=== PATIENT | male | born 1985 | race African-American/Black ===

== ENCOUNTER 2018-11-26 04:08 | Inpatient (IN) | payer OTHER ==
[~2018-11-26] VITALS: Ht 185.4 cm; Wt 71.3 kg
--- NOTE | 2018-11-26 04:18 | NUR ---
Dr. Huber at bedside for MSE.
[2018-11-26] MEDS ORDERED: VANCOMYCIN IV 1,000 MG in IV DEXTROSE 5% 250 ML IV ONE (04:30)
[2018-11-26] MEDS ORDERED: CEFTRIAXONE 1 G in IV DEXTROSE 5% 50 ML IV ONE (04:30)
[2018-11-26] MEDS ORDERED: ONDANSETRON 4 MG/2 ML VIAL IV ONE (04:30)
[2018-11-26] MEDS ORDERED: IV NORMAL SALINE 1000 ML BAG IV ONE (04:30)
[2018-11-26] MEDS ORDERED: MORPHINE SULFATE 2 MG/1 ML DISP.SYRIN IV ONE (04:30)
[2018-11-26] MEDS ORDERED: CEFTRIAXONE 1 G VIAL ONE (04:40)
[2018-11-26] MEDS ORDERED: VANCOMYCIN 1000 MG VIAL ONE (04:40)
[2018-11-26] MEDS ORDERED: ONDANSETRON 4 MG/2 ML VIAL ONE (04:41)
[2018-11-26] MEDS ORDERED: MORPHINE SULFATE 4 MG/1 ML DISP.SYRIN ONE (04:41)
[2018-11-26 04:44] LABS: POTASSIUM 3.7 mmol/L (3.5-5.1)
[2018-11-26 04:46] LABS: BASOPHILS # (AUTO) 0.1 K/uL (0.0-8.0); BASOPHILS % (AUTO) 0.3 % (0.0-2.0); EOSINOPHILS # (AUTO) 0.1 K/uL (0.0-0.7); EOSINOPHILS % (AUTO) 0.3 % (0.0-7.0); HEMOGLOBIN 15.2 g/dL (12.5-16.3); LYMPHOCYTES # (AUTO) 0.8 K/uL (20.0-40.0); MEAN CORPUSCULAR HEMOGLOBIN 27.2 uug (23.8-33.4); MEAN CORPUSCULAR HGB CONC 34 g/dL (32.5-36.3); MEAN CORPUSCULAR VOLUME 79.2 fL (73.0-96.2); MONOCYTES # (AUTO) 1.2 K/uL (2.0-10.0); MONOCYTES % (AUTO) 5.8 % (0.0-11.0); NEUTROPHILS % (AUTO) 89.6 % (38.5-71.5); PLATELET COUNT (AUTO) 325 K/uL (152-348); RED BLOOD CELL COUNT(AUTO) 5.56 MIL/uL (4.06-5.63); WHITE BLOOD COUNT (AUTO) 20.1 K/uL (3.6-10.2)
[2018-11-26 04:58] LABS: BILIRUBIN,DIRECT 0.1 mg/dL (0.0-0.2); BILIRUBIN,TOTAL 0.4 mg/dL (0.2-1.0); TOTAL PROTEIN, SERUM 7.7 g/dL (6.4-8.2)
--- NOTE | 2018-11-26 05:12 | NUR ---
Ultrasound at bedside.
[2018-11-26] MEDS ORDERED: HYDROMORPHONE 1 MG/1 ML DISP.SYRIN ONE (05:23)
[2018-11-26] MEDS ORDERED: HYDROMORPHONE 1 MG/1 ML DISP.SYRIN IV ONE (05:30)
[2018-11-26] MEDS ORDERED: SWABABLE VALVE TRANSFER SET EA MC ONE (05:42)
[2018-11-26] MEDS ORDERED: IV NORMAL SALINE 250 ML IV ONE (05:43)
[2018-11-26] MEDS ORDERED: IOHEXOL 350 100 ML INFUS..BTL ONE (05:43)
--- NOTE | 2018-11-26 05:46 | NUR ---
Patient out of ER for CT
--- NOTE | 2018-11-26 06:22 | NUR ---
Pt back to ER for CT.
--- NOTE | 2018-11-26 06:46 | NUR ---
Report given to Ruiz rojas.
--- NOTE | 2018-11-26 08:39 | NUR ---
REPORT WAS GIVEN TO RN M/S. PT WAS TRANSFERED TO ROOM #303.
[2018-11-26] MEDS ORDERED: ONDANSETRON 4 MG/2 ML VIAL IV PRN (08:45)
[2018-11-26] MEDS ORDERED: Z GUARD REMEDY PASTE 57 GM TUBE TOP PRN (08:45)
[2018-11-26] MEDS ORDERED: ACETAMINOPHEN 325 MG TABLET PO PRN (08:45)
[2018-11-26] MEDS ORDERED: MAGNESIUM HYDROXIDE 30 ML LIQUID UDC PO PRN (08:45)
--- NOTE | 2018-11-26 10:00 | NUR ---
PHARMACY CLINICAL NOTES ( VANCOMYCIN DOSING ) S: To start vanco for this 33 yo male patient for RUE cellulitis O: BUN/SCR 13/1.0 TEMP 98.4, WBC 20.1 ht 185 cm wt 68 kg A/P: Patient received vanco 1gm IVPB x1 in ED today at 0500. Will start vanco 1gm IVPB q11h for predicted vanco trough level of 15 mcg/ml at steady state. 2nd dose today at 1600. Will check vanco trough level before 4th dose today (not yet ordered) Will continue following renal FXN and adjust the dose as needed. Will follow up
[2018-11-26 10:26] VITALS: BP 126/75
--- NOTE | 2018-11-26 10:30 | NUR ---
PATIENT ARRIVED TO UNIT FROM ER. RECEIVED REPORT FROM JACKLYN CONNER. PATIENT V/S STABLE. RIGHT ARM TENDER, RED AND SWELLING. PATIENT COMPLAINS OF PAIN TO ARM. PATIENT AOX3 BUT LETHARGIC AT TIMES. PATIENT UNABLE TO PROVIDE FULL HISTORY DUE TO GARGLED SPEECH AND LETHARGY. WILL CONTINUE TO MONITOR PATIENT.
[2018-11-26 11:30] VITALS: BP 125/89
[2018-11-26] MEDS: ENOXAPARIN SODIUM 40 MG/0.4 ML DISP.SYRIN SQ SCH (12:59)
[2018-11-26] MEDS: MORPHINE SULFATE 2 MG/1 ML DISP.SYRIN IV PRN ×3 (13:08→22:35)
[2018-11-26] MEDS: IV NS 1000 ML 1,000 ML IV PRN (14:10)
[2018-11-26] MEDS: HYDROCODONE/APAP 5-325MG TABLET PO PRN (15:23)
[2018-11-26 15:44] LABS: *BILIRUBIN,URIN NEGATIVE (NEGATIVE); *BLOOD, URINE NEGATIVE (NEGATIVE); *CLARITY,URINE CLEAR (CLEAR); *COLOR,URINE YELLOW (YELLOW); *KETONES,URINE NEGATIVE (NEGATIVE); NITRITE, URINE NEGATIVE (NEGATIVE); UGLUCOSE NEGATIVE (NEGATIVE)
[2018-11-26 16:00] VITALS: BP 123/78
[2018-11-26 16:03] LABS: LEUKOCYTE ESTERASE ,URINE TRACE (NEGATIVE)
[2018-11-26 16:04] LABS: MUCUS,URINE FEW /LPF (0-FEW); SQUAMOUS EPITHELIAL CELL,UR FEW /HPF (NONE SEEN)
[2018-11-26 16:06] LABS: *AMPHETAMINE, URINE POSITIVE (NEGATIVE); *BARBITURATE, URINE NEGATIVE (NEGATIVE); *CANNABINOID, URINE POSITIVE (NEGATIVE); *COCCAINE, URINE NEGATIVE (NEGATIVE); *OPIATE, URINE POSITIVE (NEGATIVE); *PHENCYCLIDINE SCREEN,URINE NEGATIVE (NEGATIVE)
[2018-11-26] MEDS: VANCOMYCIN IV 1 G in PREMIXED 0 EACH IV SCH (16:46)
--- NOTE | 2018-11-26 19:30 | NUR ---
SHIFT REPORT GIVEN TO NIGHT RN. PATIENT AOX4, LESS LETHARGIC THEN WHEN CAME IN. LEFT ARM IV INTACT WITH NS AT 75CC/HR ORDERED. PATIENT COMPLAINS OF RT. ARM PAIN AND PAIN MEDICATIONS ARE GIVEN ORDERED. PATIENT COMPLIANT WITH ALL CARE AND MEDICATION ADMINISTRATION. VITAL SIGNS STABLE THROUGHOUT SHIFT. SAFETY AND FALL PREVENTION IN PLACE. BED LOW AND LOCKED. CALL LIGHT IN REACH.
--- NOTE | 2018-11-26 20:00 | NUR ---
RECEIVED REPORT FROM AM RN. PATIENT ASLEEP IN BED, RESTING COMFORTABLY. UNABLE TO AROUSE FROM SLEEP BUT VS ARE WNL AND PATIENT IS STABLE. FALL AND SAFETY PRECAUTIONS IN PLACE. BED IN LOWEST POSITION WITH BRAKE APPLIED. 2 SIDE RAILS ARE UP AND IN LOCKED POSITION. CALL LIGHT IS WITHIN REACH. BED ALARM APPLIED FOR PATIENT SAFETY DUE TO MEDICATION REGIMEN TO RELIEVE PAIN. WILL CONTINUE TO MONITOR.
[2018-11-26 20:02] VITALS: BP 125/83
[2018-11-27] MEDS: HYDROCODONE/APAP 5-325MG TABLET PO PRN ×2 (00:27→22:04)
[2018-11-27] MEDS: VANCOMYCIN IV 1 G in PREMIXED 0 EACH IV SCH (02:32)
[2018-11-27] MEDS: IV NS 1000 ML 1,000 ML IV PRN (04:27)
[2018-11-27] MEDS ORDERED: CEFTRIAXONE 1 G in IV DEXTROSE 5% 50 ML IV SCH (05:00)
[2018-11-27 05:11] VITALS: BP 113/74
[2018-11-27] MEDS: MORPHINE SULFATE 2 MG/1 ML DISP.SYRIN IV PRN ×2 (05:29→15:49)
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
[2018-11-27 06:19] LABS: BASOPHILS # (AUTO) 0.1 K/uL (0.0-8.0); BASOPHILS % (AUTO) 0.5 % (0.0-2.0); EOSINOPHILS # (AUTO) 0.5 K/uL (0.0-0.7); EOSINOPHILS % (AUTO) 2.3 % (0.0-7.0); HEMATOCRIT 41.7 % (36.7-47.1); HEMOGLOBIN 14.5 g/dL (12.5-16.3); LYMPHOCYTES # (AUTO) 1.6 K/uL (20.0-40.0); LYMPHOCYTES % (AUTO) 8.4 % (20.5-51.5); MEAN CORPUSCULAR HEMOGLOBIN 27.1 uug (23.8-33.4); MEAN CORPUSCULAR HGB CONC 35 g/dL (32.5-36.3); MEAN CORPUSCULAR VOLUME 78.1 fL (73.0-96.2); MONOCYTES # (AUTO) 1.5 K/uL (2.0-10.0); MONOCYTES % (AUTO) 7.6 % (0.0-11.0); NEUTROPHILS # (AUTO) 15.9 K/uL (1.8-8.9); NEUTROPHILS % (AUTO) 81.2 % (38.5-71.5); PLATELET COUNT (AUTO) 306 K/uL (152-348); RED BLOOD CELL COUNT(AUTO) 5.33 MIL/uL (4.06-5.63); WHITE BLOOD COUNT (AUTO) 19.6 K/uL (3.6-10.2)
[2018-11-27 06:52] LABS: CREATININE 0.9 mg/dL (0.6-1.3); MAGNESIUM 1.7 mg/dL (1.8-2.4); PHOSPHOROUS 2.5 mg/dL (2.5-4.9); POTASSIUM 3.8 mmol/L (3.5-5.1)
--- NOTE | 2018-11-27 07:02 | NUR ---
PATIENT IN BED WITH NO COMPLAINTS OF PAIN. PATIENT ON STRICT I AND O. IV REMAINS PATENT AND INTACT. ALL SAFETY AND FALL PREVENTION MEASURES IN PLACE. BED IN LOW POSITION, 2 SIDE RAILS UP AND BED ALARM ON. WILL CONTINUE TO MONITOR. CALL LIGHT WITHIN REACH AT ALL TIMES.
[2018-11-27 07:18] LABS: THYROID STIMULATING HORMONE 0.093 mIU/mL (0.358-3.740)
[2018-11-27] MEDS: ENOXAPARIN SODIUM 40 MG/0.4 ML DISP.SYRIN SQ SCH (08:09)
[2018-11-27] MEDS ORDERED: MAGNESIUM OXIDE 400 MG TABLET PO ONE (10:15)
[2018-11-27 11:27] VITALS: BP 106/70
[2018-11-27] MEDS: PIPERACILLIN/TAZOBACTAM/D5W 50 ML IV SCH ×2 (12:49→18:17)
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
[2018-11-27] MEDS: VANCOMYCIN IV 1,250 MG in IV DEXTROSE 5% 500 ML IV SCH ×2 (15:41→22:01)
[2018-11-27 16:14] VITALS: BP 110/68
--- NOTE | 2018-11-27 18:35 | NUR ---
PATIENT IN BED WATCHING TV , NO COMPLAINTS OF PAIN AT THIS TIME. PATIENT ON STRICT I AND O. IV REMAINS PATENT AND INTACT. ON IV ATB . NO ADVERSE REACTION NOTED ALL SAFETY AND FALL PREVENTION MEASURES IN PLACE. BED IN LOW POSITION, 2 SIDE RAILS UP AND BED ALARM ON. WILL CONTINUE TO MONITOR. CALL LIGHT WITHIN REACH AT ALL TIMES.
--- NOTE | 2018-11-27 19:00 | NUR ---
RECEIVED REPORT FROM AM RN. PATIENT ASLEEP IN BED, RESTING COMFORTABLY, BUT AROUSES TO NAME AND ABLE TO ANSWER QUESTIONS. FALL AND SAFETY PRECAUTIONS IN PLACE. BED IN LOWEST POSITION WITH BRAKE APPLIED. 2 SIDE RAILS ARE UP AND IN LOCKED POSITION. CALL LIGHT AND PERSONAL ITEMS ARE WITHIN REACH. BED ALARM APPLIED FOR PATIENT SAFETY DUE TO MEDICATION REGIMEN TO RELIEVE PAIN. WILL CONTINUE TO MONITOR.
--- NOTE | 2018-11-27 19:45 | NUR ---
HOSPITAL WARD CLERK REPORTED TEMPERATURE OF 99.1. GAVE TYLENOL 650mg PO. WILL FOLLOW UP TO RECHECK TEMPERATURE IN 30min.
[2018-11-27] MEDS: CULTURELLE CAPSULE PO SCH (20:25)
[2018-11-27 20:30] VITALS: BP 122/72
--- NOTE | 2018-11-27 21:15 | NUR ---
TEMPERATURE REASSESSED IN PATIENT AND NOW REFLECTING 98.6 F
[2018-11-28] MEDS: PIPERACILLIN/TAZOBACTAM/D5W 50 ML IV SCH ×4 (00:11→17:41)
[2018-11-28] MEDS: IV NS 1000 ML 1,000 ML IV PRN (03:24)
[2018-11-28 05:07] VITALS: BP 116/81
[2018-11-28] MEDS: HYDROCODONE/APAP 5-325MG TABLET PO PRN ×2 (05:24→22:15)
--- NOTE | 2018-11-28 06:00 | NUR ---
PATIENT SLEPT INTERMITTENTLY THROUGHOUT NIGHT WITH 2 EPISODES OF PAIN, WHICH WERE ADDRESSED WITH PRESCRIBED PAIN RELIEF MEDICATION. IV SITE OF LEFT ANTECUBITAL DISLODGED AND NEW IV SITE ESTABLISHED ON LEFT FOREARM WITH 20g SALINE LOCK. IV ANTIBIOTICS PROVIDED ORDERED AND TOLERATED WELL. ALL SAFETY AND FALL PRECAUTIONS IN PLACE. BED IN LOWEST POSITION WITH BRAKE APPLIED. 2 SIDE RAILS UP AND IN LOCKED POSITION. CALL LIGHT AND PERSONAL ITEMS ARE WITHIN REACH AT ALL TIMES.
[2018-11-28] MEDS: VANCOMYCIN IV 1,250 MG in IV DEXTROSE 5% 500 ML IV SCH ×3 (06:30→22:04)
[2018-11-28 06:45] LABS: BASOPHILS # (AUTO) 0.1 K/uL (0.0-8.0); BASOPHILS % (AUTO) 0.4 % (0.0-2.0); EOSINOPHILS # (AUTO) 0.7 K/uL (0.0-0.7); EOSINOPHILS % (AUTO) 4.6 % (0.0-7.0); HEMATOCRIT 41.4 % (36.7-47.1); HEMOGLOBIN 14.5 g/dL (12.5-16.3); LYMPHOCYTES # (AUTO) 1.4 K/uL (20.0-40.0); LYMPHOCYTES % (AUTO) 9.5 % (20.5-51.5); MEAN CORPUSCULAR HEMOGLOBIN 27.2 uug (23.8-33.4); MEAN CORPUSCULAR HGB CONC 35 g/dL (32.5-36.3); MEAN CORPUSCULAR VOLUME 77.8 fL (73.0-96.2); MONOCYTES # (AUTO) 1.4 K/uL (2.0-10.0); MONOCYTES % (AUTO) 9.5 % (0.0-11.0); NEUTROPHILS # (AUTO) 11.1 K/uL (1.8-8.9); PLATELET COUNT (AUTO) 305 K/uL (152-348); RED BLOOD CELL COUNT(AUTO) 5.31 MIL/uL (4.06-5.63); WHITE BLOOD COUNT (AUTO) 14.6 K/uL (3.6-10.2)
[2018-11-28 07:01] LABS: CREATININE 0.9 mg/dL (0.6-1.3)
[2018-11-28] MEDS: ENOXAPARIN SODIUM 40 MG/0.4 ML DISP.SYRIN SQ SCH (08:17)
[2018-11-28] MEDS: CULTURELLE CAPSULE PO SCH ×2 (08:17→21:00)
[2018-11-28 10:09] LABS: HEPATITIS A AB, IgM Negative (Negative); HEPATITIS A AB, TOTAL Negative (Negative); HEPATITIS B SURFACE AB Non Reactive (.); HEPATITIS B SURFACE AG Negative (Negative)
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
--- NOTE | 2018-11-28 10:38 | NUR ---
Patient seen and examined by CUCA Draper. Continue order wound culture, lump/abscess still intact. denies pain/discomfort. Applied wet and warm compress. will continue monitor
[2018-11-28 12:05] VITALS: BP 115/72
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
[2018-11-28 16:19] VITALS: BP 114/77
[2018-11-28] MEDS: MORPHINE SULFATE 2 MG/1 ML DISP.SYRIN IV PRN (17:42)
[2018-11-28 19:31] VITALS: BP 105/74
--- NOTE | 2018-11-28 23:05 | NUR ---
RECEIVED REPORT FROM REPORTING DEVELOPER FOR SHIFT. PATIENT ASLEEP IN BED WITH IVF INFUSING WELL TO LEFT FA #20 GAUGE. PATIENT PREVIOUSLY MEDICATED WITH NORCO PER RN. NO S/S OF PAIN OR DISCOMFORT. NO RESP. DISTRESS NOTED. CALL LIGHT IN REACH. ALL NEEDS ATTENDED. WILL CONTINUE TO MONITOR AND ASSESS.
[2018-11-29] MEDS: PIPERACILLIN/TAZOBACTAM/D5W 50 ML IV SCH ×4 (00:38→18:20)
[2018-11-29 03:11] VITALS: BP 102/68
[2018-11-29] MEDS: HYDROCODONE/APAP 5-325MG TABLET PO PRN (03:19)
[2018-11-29 05:37] LABS: BASOPHILS # (AUTO) 0.1 K/uL (0.0-8.0); BASOPHILS % (AUTO) 1.2 % (0.0-2.0); EOSINOPHILS # (AUTO) 0.5 K/uL (0.0-0.7); EOSINOPHILS % (AUTO) 5.6 % (0.0-7.0); HEMOGLOBIN 15.3 g/dL (12.5-16.3); LYMPHOCYTES # (AUTO) 1.8 K/uL (20.0-40.0); LYMPHOCYTES % (AUTO) 19.6 % (20.5-51.5); MEAN CORPUSCULAR HEMOGLOBIN 27.7 uug (23.8-33.4); MEAN CORPUSCULAR HGB CONC 36 g/dL (32.5-36.3); MONOCYTES # (AUTO) 0.8 K/uL (2.0-10.0); MONOCYTES % (AUTO) 8.5 % (0.0-11.0); NEUTROPHILS # (AUTO) 5.9 K/uL (1.8-8.9); NEUTROPHILS % (AUTO) 65.1 % (38.5-71.5); PLATELET COUNT (AUTO) 373 K/uL (152-348); RED BLOOD CELL COUNT(AUTO) 5.51 MIL/uL (4.06-5.63); WHITE BLOOD COUNT (AUTO) 9.1 K/uL (3.6-10.2)
[2018-11-29 05:46] LABS: CREATININE 0.9 mg/dL (0.6-1.3); POTASSIUM 4.2 mmol/L (3.5-5.1)
--- NOTE | 2018-11-29 06:19 | NUR ---
PATIENT ASLEEP IN BED. VSS. IVF INFUSING WELL. SLEPT WELL. CALL LIGHT IN REACH. ALL NEEDS ATTENDED. WILL CONTINUE TO MONITOR AND ASSESS.
[2018-11-29] MEDS: VANCOMYCIN IV 1,250 MG in IV DEXTROSE 5% 500 ML IV SCH ×3 (06:43→23:19)
[2018-11-29 08:00] VITALS: BP 107/75
--- NOTE | 2018-11-29 08:13 | NUR ---
PHARMACY CLINICAL NOTES ( VANCOMYCIN DOSING ) S: To continue vanco for this 33 yo male patient for RUE cellulitis O: BUN/SCR 12/0.9 TEMP 98, WBC 9.1 Vanco trough level: 15.7 (510 at 1445) ht 185 cm wt 68 kg A/P: Will continue regimen of vanco 1250mg q8h for now as renal function remains stable. If renal function were to become unstable or condition to change, will adjust or check level again. Otherwise will continue to follow
[2018-11-29] MEDS: CULTURELLE CAPSULE PO SCH ×2 (08:39→20:56)
[2018-11-29] MEDS: ENOXAPARIN SODIUM 40 MG/0.4 ML DISP.SYRIN SQ SCH (08:40)
[2018-11-29 11:25] VITALS: BP 99/56
[2018-11-29] MEDS: CLINDAMYCIN PHOSPHATE IV 900 MG in IV DEXTROSE 5% 100 ML IV SCH ×2 (14:38→22:43)
[2018-11-29 15:30] VITALS: BP 113/71
--- NOTE | 2018-11-29 17:26 | NUR ---
In Bed, no distress noted. No c/o pain. R arm swelling, warm compresses done twice today and re dressed wound. Wound oozing yellow thick pus, no odor. eating well. Cooperative. Bed low and locked. call light within reached. will cont to monitor.
--- NOTE | 2018-11-29 17:28 | NUR ---
Culture sent to lab from R antecubital wound and MRSA jacquelyn nares. will cont to monitor.
--- NOTE | 2018-11-29 19:57 | NUR ---
report received from the day shift. patient is awake, resting in bed. No acute distress noted. Comfort and safety provided.
[2018-11-29 20:44] VITALS: BP 106/70
[2018-11-30] MEDS: PIPERACILLIN/TAZOBACTAM/D5W 50 ML IV SCH ×4 (00:32→17:16)
[2018-11-30 05:28] VITALS: BP 106/69
[2018-11-30 06:13] LABS: BASOPHILS # (AUTO) 0.1 K/uL (0.0-8.0); BASOPHILS % (AUTO) 1.9 % (0.0-2.0); EOSINOPHILS # (AUTO) 0.6 K/uL (0.0-0.7); EOSINOPHILS % (AUTO) 8.2 % (0.0-7.0); HEMATOCRIT 43.2 % (36.7-47.1); HEMOGLOBIN 14.9 g/dL (12.5-16.3); LYMPHOCYTES # (AUTO) 1.8 K/uL (20.0-40.0); LYMPHOCYTES % (AUTO) 24.5 % (20.5-51.5); MEAN CORPUSCULAR HGB CONC 35 g/dL (32.5-36.3); MEAN CORPUSCULAR VOLUME 78.3 fL (73.0-96.2); MONOCYTES # (AUTO) 0.7 K/uL (2.0-10.0); MONOCYTES % (AUTO) 9.6 % (0.0-11.0); NEUTROPHILS % (AUTO) 55.8 % (38.5-71.5); PLATELET COUNT (AUTO) 451 K/uL (152-348); RED BLOOD CELL COUNT(AUTO) 5.51 MIL/uL (4.06-5.63); WHITE BLOOD COUNT (AUTO) 7.2 K/uL (3.6-10.2)
[2018-11-30] MEDS: CLINDAMYCIN PHOSPHATE IV 900 MG in IV DEXTROSE 5% 100 ML IV SCH ×3 (06:31→21:16)
[2018-11-30 06:34] LABS: POTASSIUM 4.2 mmol/L (3.5-5.1)
[2018-11-30] MEDS: VANCOMYCIN IV 1,250 MG in IV DEXTROSE 5% 500 ML IV SCH ×3 (07:49→23:18)
--- NOTE | 2018-11-30 08:00 | NUR ---
report given to [employer], UBALDO. patient is still sleeping. Patient slept well. Did not complain of pain. Comfort and safety provided.
[2018-11-30] MEDS: ENOXAPARIN SODIUM 40 MG/0.4 ML DISP.SYRIN SQ SCH (09:30)
[2018-11-30] MEDS: CULTURELLE CAPSULE PO SCH ×2 (09:30→21:13)
[2018-11-30 11:21] VITALS: BP 115/65
--- NOTE | 2018-11-30 11:43 | NUR ---
PHARMACY CLINICAL NOTES ( VANCOMYCIN DOSING ) S: To continue vanco for this 33 yo male patient for RUE cellulitis O: BUN/SCR 14/1.0 TEMP 98, WBC 7.2 Vanco trough level: 15.7 (11/28 at 1445) ht 185 cm wt 68 kg A/P: Will continue regimen of vanco 1250mg q8h for now as renal function remains stable. If renal function were to become unstable or condition to change, will adjust or check level again. Otherwise will continue to follow
[2018-11-30 16:00] VITALS: BP 113/70
[2018-11-30] MEDS: NICOTINE 14 MG/24HR PATCH TD SCH (18:17)
--- NOTE | 2018-11-30 18:30 | NUR ---
Warm pack applied 3 times on right forearm wound through out the day. Drained purulent drainage. Sent repeat cx as ordered. Pt is in no acute distress.
[2018-11-30 20:00] VITALS: BP 109/65
[2018-12-01] MEDS: PIPERACILLIN/TAZOBACTAM/D5W 50 ML IV SCH ×3 (01:50→12:42)
[2018-12-01] MEDS: CLINDAMYCIN PHOSPHATE IV 900 MG in IV DEXTROSE 5% 100 ML IV SCH ×2 (05:17→15:02)
[2018-12-01 05:53] VITALS: BP 115/69
[2018-12-01] MEDS: VANCOMYCIN IV 1,250 MG in IV DEXTROSE 5% 500 ML IV SCH ×2 (06:56→15:00)
[2018-12-01] MEDS: CULTURELLE CAPSULE PO SCH (09:01)
[2018-12-01] MEDS: NICOTINE 14 MG/24HR PATCH TD SCH (09:05)
[2018-12-01] MEDS: ENOXAPARIN SODIUM 40 MG/0.4 ML DISP.SYRIN SQ SCH (09:07)
--- NOTE | 2018-12-01 09:40 | NUR ---
PHARMACY CLINICAL NOTES ( VANCOMYCIN DOSING ) S: To continue vanco for this 33 yo male patient for RUE cellulitis O: BUN/SCR 14/1.0 (11/30) TEMP 98.2, WBC 7.2 (11/30) Vanco trough level: 15.7 (11/28 at 1445) ht 185 cm wt 68 kg A/P: Will continue regimen of vanco 1250mg IVPB q8h for now as renal function remains stable. If renal function were to become unstable or condition to change, will adjust or check level again. Otherwise will continue to follow
[2018-12-01] MEDS ORDERED: CEPH-570 PO (11:12)
[2018-12-01] MEDS ORDERED: SULF1TAB48 PO (11:12)
[2018-12-01 12:00] VITALS: BP 116/76
--- NOTE | 2018-12-01 15:00 | NUR ---
iv infiltrated--pt. d/c'd refused restart
[2018-12-01 16:00] VITALS: BP 108/61
--- NOTE | 2018-12-01 18:00 | NUR ---
all home instructions reviewed with pt. home rx reviewed with pt. by pharmacist--[place]ague. discharged to self .
== END 2018-12-01 18:00 | disposition still patient (30) | DRG 720 ==
LOC: ER 05:45 → MEDSURG3 09:29
PROVIDERS: ADMIT Nurse Practitioner Acute Care; ATTEND Nurse Practitioner Acute Care
DX: A41.9 Sepsis, unspecified organism (principal); I82.611 Acute embolism and thrombosis of superficial veins of right upper extremity; L02.413 Cutaneous abscess of right upper limb; L03.113 Cellulitis of right upper limb; F15.10 Other stimulant abuse, uncomplicated; S50.361 Insect bite (nonvenomous) of right elbow; W57.XXXS Bitten or stung by nonvenomous insect and other nonvenomous arthropods, sequela; E05.90 Thyrotoxicosis, unspecified without thyrotoxic crisis or storm; J43.8 Other emphysema; F12.10 Cannabis abuse, uncomplicated; Z90.49 Acquired absence of other specified parts of digestive tract; B95.62 Methicillin resistant Staphylococcus aureus infection as the cause of diseases classified elsewhere; Z16.11 Resistance to penicillins; Z16.39 Resistance to other specified antimicrobial drug; Z82.49 Family history of ischemic heart disease and other diseases of the circulatory system; Z59.0 Homelessness; F17.210 Nicotine dependence, cigarettes, uncomplicated
CPT/HCPCS: 36415; 71275; 73200; 80307; 83605; 83735; 84100; 84443; 85025; 86706; 86708; 86709; 86803; 87040; 87070; 87077; 87086; 87340; 87806; 93307; A4217; A4663; G0378; J0696; J1170; J1650; J2270; J2405; J2543; J3370; J3490; J7030; J7050; J7060; Q9967